=== PATIENT | female | born 1940 | race Caucasian/White ===

== ENCOUNTER 2017-07-13 10:30 | Outpatient (CLI) | payer MEDICARE, MEDICAID | END 2017-07-13 23:59 | disposition home or self-care (01) | LOC: RAD 10:30 | DX: J84.9 Interstitial pulmonary disease, unspecified (principal); I70.0 Atherosclerosis of aorta | CPT/HCPCS: 71046 ==

== ENCOUNTER 2018-02-02 12:22 | Emergency (ER) | payer MEDICARE, MEDICAID ==
[~2018-02-02] VITALS: Ht 160 cm; Wt 88.9 kg
--- NOTE | 2018-02-02 12:25 | NUR ---
BIB DAUGHTER C/O SUDDEN DARKNESS WHILE SITTING ON A CHAIR X 3 DAYS. ALSO C/O SOB. A/OX 4, BREATHING EVEN AND UNLABORED. NO DISTRESS, VSS. SAFETY AND COMFORT MEASURES IN PLACE. AWAITING MD ORDERS.
[2018-02-02] MEDS ORDERED: ONDANSETRON HCL/PF 4 MG/2 ML VIAL IVP ONE (12:30)
[2018-02-02] MEDS ORDERED: IV NS 0.9% 500 ML BAG IV ONE (12:30)
[2018-02-02] MEDS ORDERED: ONDANSETRON HCL/PF 4 MG/2 ML VIAL ONE (12:35)
--- NOTE | 2018-02-02 12:45 | NUR ---
NEW IV STARTED ON LAC, 20G. BLOOD DRAWN AND SENT TO LAB.
[2018-02-02 12:47] LABS: BASOPHILS % (AUTO) 0.6 % (0.0-2.0); EOSINOPHILS % (AUTO) 2.4 % (0.0-6.0); HEMATOCRIT 40 % (33-45); HEMOGLOBIN 13.6 g/dL (11.5-14.8); LYMPHOCYTES # (AUTO) 1.9 /CMM (0.8-4.8); LYMPHOCYTES % (AUTO) 33.3 % (20.0-44.0); MEAN CORPUSCULAR HEMOGLOBIN 30 PG (26.0-33.0); MEAN CORPUSCULAR HGB CONC 34 g/dl (31.0-36.0); MEAN CORPUSCULAR VOLUME 89 fL (82-100); MONOCYTES # (AUTO) 0.3 /CMM (0.1-1.30); MONOCYTES % (AUTO) 6.1 % (2.0-12.0); NEUTROPHILS # (AUTO) 3.3 /CMM (1.8-8.9); NEUTROPHILS % (AUTO) 57.6 % (43.0-81.0); PLATELET COUNT (AUTO) 160 /CMM (150-450); RDW COEFFICIENT OF VARIATION 11.9 (11.5-15.0); RED BLOOD CELL COUNT(AUTO) 4.53 MIL/uL (4.0-5.2); WHITE BLOOD COUNT (AUTO) 5.6 K/uL (4.3-11.0)
--- NOTE | 2018-02-02 12:49 | NUR ---
PATIENT MEDICATED PER MD ORDERS. PATIENT TAKEN TO RADIOLOGY.
[2018-02-02 12:56] LABS: CALCIUM, SERUM 8.8 mg/dL (8.5-10.1); CARBON DIOXIDE 26 mmol/L (21-32); CHLORIDE 104 mmol/L (98-107); CREATININE 0.8 mg/dL (0.6-1.3); GLUCOSE 90 mg/dL (74-106); POTASSIUM 3.7 mmol/L (3.5-5.1); SODIUM SERUM 137 mmol/L (136-145); UREA NITROGEN, BLOOD 19 mg/dL (7-18)
[2018-02-02 13:00] LABS: INR 1.01 (0.85-1.15)
[2018-02-02 13:02] LABS: ALANINE AMINOTRANSFERASE 37 U/L (12-78); ALBUMIN 3.6 g/dL (3.4-5.0); ALKALINE PHOSPHATASE 67 U/L (46-116); ASPARTATE AMINOTRANSFERASE 26 U/L (15-37); BILIRUBIN,DIRECT 0.1 mg/dL (0.0-0.2); BILIRUBIN,TOTAL 0.6 mg/dL (0.2-1.0); TOTAL PROTEIN, SERUM 7.6 g/dL (6.4-8.2)
[2018-02-02 13:04] LABS: TROPONIN I < 0.017 ng/mL (0.00-0.056)
--- NOTE | 2018-02-02 13:05 | NUR ---
PATIENT RETURNED FROM RADIOLOGY IN STABLE CONDITION.
[2018-02-02 14:10] VITALS: BP 142/84
--- NOTE | 2018-02-02 14:32 | NUR ---
IV removed. Catheter intact and site benign. Pressure and 4x4 applied to site. No bleeding noted.Patient discharged to home in stable condition. Written and verbal after care instructions given. Patient verbalizes understanding of instruction.
== END 2018-02-02 14:32 | disposition left against medical advice (07) ==
LOC: ER 12:26
DX: R55 Syncope and collapse (principal); R53.1 Weakness; E66.9 Obesity, unspecified; E78.00 Pure hypercholesterolemia, unspecified; I10 Essential (primary) hypertension; Z90.49 Acquired absence of other specified parts of digestive tract; Z90.710 Acquired absence of both cervix and uterus; Z68.34 Body mass index [BMI] 34.0-34.9, adult
CPT/HCPCS: 36415; 70450; 71045; 80048; 80076; 82962; 84484; 85025; 85730; 93005; 96374; 99285; A4606; J2405; J7040; Z7610

== ENCOUNTER 2018-02-22 10:07 | Outpatient (CLI) | payer MEDICARE, MEDICAID | END 2018-02-22 23:59 | disposition home or self-care (01) | LOC: US 10:07 | DX: K76.0 Fatty (change of) liver, not elsewhere classified (principal); N13.30 Unspecified hydronephrosis; I10 Essential (primary) hypertension; Z90.49 Acquired absence of other specified parts of digestive tract; Z90.710 Acquired absence of both cervix and uterus | CPT/HCPCS: 76700-TC ==

== ENCOUNTER 2020-05-22 15:34 | Emergency (ER) | payer MEDICARE, OTHER ==
[~2020-05-22] VITALS: Ht 162.6 cm; Wt 95.3 kg
[2020-05-22] MEDS ORDERED: IV NS 0.9% 500 ML BAG IV ONE (17:00)
[2020-05-22] MEDS ORDERED: ASPI-1420 PO (17:03)
[2020-05-22] MEDS ORDERED: ASCO-352 PO (17:03)
[2020-05-22] MEDS ORDERED: ENAL10TA39 PO (17:03)
[2020-05-22] MEDS ORDERED: CHOL500052 PO (17:03)
[2020-05-22] MEDS ORDERED: ATEN50TA PO (17:03)
[2020-05-22] MEDS ORDERED: DEXA4TAB PO (17:03)
--- NOTE | 2020-05-22 17:39 | NUR ---
BIBDAUGHTER FROM HOME TO ER BED 14. AAOX4. NOT IN RESP DISTRESS, BREATHING EVEN AND UNLABORED BUT NOTED 88% ON RA. PT IS AMBULATORY. CAME IN FOR HYPOXIA, FEVER, POOR PO , NAUSEA, VOMMITING AND DIARRHEA. PT'S DAUGHTER REPORTS THAT PT WAS COVID POSITIVE SINCE 05/13/20. WAS AT THE BEDSIDE FOR EVAL. ORDERS RECEIVED, NOTED AND CARRIED OUT. IV LINE ESTABLISHED ON L AC 20G, BLOOD DRAWN AND GIVEN TO PRIOR AUTHORIZATION TECHNICIAN. XRAY DONE AT BEDSIDE
[2020-05-22 17:42] LABS: BASOPHILS # (AUTO) 0.2 /CMM (0.0-0.2); BASOPHILS % (AUTO) 3.5 % (0.0-2.0); EOSINOPHILS % (AUTO) 0.4 % (0.0-6.0); HEMATOCRIT 41 % (33-45); LYMPHOCYTES # (AUTO) 0.3 /CMM (0.8-4.8); LYMPHOCYTES % (AUTO) 7.2 % (20.0-44.0); MEAN CORPUSCULAR HGB CONC 34 g/dl (31.0-36.0); MEAN CORPUSCULAR VOLUME 89 fL (82-100); MONOCYTES # (AUTO) 0.3 /CMM (0.1-1.30); MONOCYTES % (AUTO) 6.9 % (2.0-12.0); NEUTROPHILS # (AUTO) 3.7 /CMM (1.8-8.9); PLATELET COUNT (AUTO) 116 /CMM (150-450); RED BLOOD CELL COUNT(AUTO) 4.59 MIL/uL (4.0-5.2); WHITE BLOOD COUNT (AUTO) 4.5 K/uL (4.3-11.0)
[2020-05-22 17:51] LABS: CALCIUM, SERUM 8.2 mg/dL (8.5-10.1); CREATININE 1.1 mg/dL (0.6-1.3); POTASSIUM 4.3 mmol/L (3.5-5.1)
--- NOTE | 2020-05-22 17:58 | NUR ---
PT UNABLE TO PROVIDE URINE AT THIS TIME. WILL TRY AGAIN IN A BIT
--- NOTE | 2020-05-22 17:58 | NUR ---
COVID SWAB DONE AND SENT TO LAB
[2020-05-22 18:04] LABS: ALBUMIN 3.1 g/dL (3.4-5.0); BILIRUBIN,DIRECT 0.2 mg/dL (0.0-0.2); BILIRUBIN,TOTAL 0.6 mg/dL (0.2-1.0); TOTAL PROTEIN, SERUM 7.5 g/dL (6.4-8.2)
[2020-05-22 18:44] VITALS: BP 117/57
--- NOTE | 2020-05-22 18:44 | NUR ---
Patient discharged to home in stable condition. Written and verbal after care instructions given. Patient verbalizes understanding of instruction.IV removed. Catheter intact and site benign. Pressure and 4x4 applied to site. No bleeding noted. Pt ambulatory with a steady gait
== END 2020-05-22 18:45 | disposition home or self-care (01) ==
LOC: ER 16:38
DX: U07.1 COVID-19 (principal); J12.89 Other viral pneumonia; Z90.49 Acquired absence of other specified parts of digestive tract; I11.9 Hypertensive heart disease without heart failure; Z79.899 Other long term (current) drug therapy
CPT/HCPCS: 36415; 71045; 80048; 80076; 83880; 84484; 85025; 93005; 99285; J7040; C9803; U0003

== ENCOUNTER 2020-05-25 10:30 | Inpatient (IN) | payer MEDICARE, OTHER ==
[~2020-05-25] VITALS: Ht 157.5 cm; Wt 84.4 kg
[~2020-05-25 10:30] MED LIST: ASCO-352 PO; ASPI-1420 PO; ATEN50TA PO; CHOL500052 PO; DEXA4TAB PO; ENAL10TA39 PO
--- NOTE | 2020-05-25 10:35 | NUR ---
BIB DAUGHTER, SOB, WEAKNESS. HYPOXIC INSTRUCTIONAL SPECIALIST. COVID19 POSITIVE. placed on nrb at 15l satting at 98. vs checked, hooken on monitor. iv access started blood draw done sent to lab
[2020-05-25] MEDS ORDERED: IV NS 0.9% 500 ML IV ONE (11:00)
[2020-05-25 11:05] LABS: BASOPHILS % (AUTO) 0.2 % (0.0-2.0); HEMATOCRIT 42 % (33-45); HEMOGLOBIN 14.4 g/dL (11.5-14.8); LYMPHOCYTES # (AUTO) 0.4 /CMM (0.8-4.8); LYMPHOCYTES % (AUTO) 6.4 % (20.0-44.0); MEAN CORPUSCULAR HGB CONC 34 g/dl (31.0-36.0); MEAN CORPUSCULAR VOLUME 90 fL (82-100); MONOCYTES # (AUTO) 0.4 /CMM (0.1-1.30); NEUTROPHILS # (AUTO) 6.2 /CMM (1.8-8.9); NEUTROPHILS % (AUTO) 88.4 % (43.0-81.0); PLATELET COUNT (AUTO) 155 /CMM (150-450); RED BLOOD CELL COUNT(AUTO) 4.67 MIL/uL (4.0-5.2)
[2020-05-25 11:26] LABS: CALCIUM, SERUM 8.7 mg/dL (8.5-10.1); CARBON DIOXIDE 24 mmol/L (21-32); CHLORIDE 99 mmol/L (98-107); GLUCOSE 154 mg/dL (74-106); POTASSIUM 3.7 mmol/L (3.5-5.1); SODIUM SERUM 133 mmol/L (136-145); UREA NITROGEN, BLOOD 25 mg/dL (7-18)
[2020-05-25 11:31] LABS: ALANINE AMINOTRANSFERASE 88 U/L (12-78); ALBUMIN 2.7 g/dL (3.4-5.0); ALKALINE PHOSPHATASE 86 U/L (46-116); ASPARTATE AMINOTRANSFERASE 95 U/L (15-37); B-TYPE NATRIURETIC PEPTIDE 753 PG/ML (0-125); BILIRUBIN,TOTAL 0.9 mg/dL (0.2-1.0); TOTAL PROTEIN, SERUM 7.6 g/dL (6.4-8.2)
[2020-05-25] MEDS ORDERED: GABA300C PO (11:54)
[2020-05-25] MEDS ORDERED: ZINC220T4 PO (11:54)
[2020-05-25] MEDS ORDERED: ROSU40TA23 PO (11:54)
[2020-05-25] MEDS ORDERED: CITA40TA11 PO (11:54)
[2020-05-25] MEDS ORDERED: ASPI-869 PO (11:54)
[2020-05-25] MEDS ORDERED: BUSP15TA3 PO (11:54)
[2020-05-25] MEDS ORDERED: DONE23TA3 PO (11:54)
[2020-05-25 13:04] LABS: D-DIMER > 35.20 mg/L(FEU (0.17-0.50)
[2020-05-25] MEDS ORDERED: HYDROCODONE/APAP 5/325MG TABLET PO PRN (13:30)
[2020-05-25] MEDS ORDERED: ACETAMINOPHEN 325 MG TABLET PO PRN (13:30)
[2020-05-25] MEDS ORDERED: ENALAPRIL MALEATE (10 MG) 10 MG TABLET PO PRN (13:30)
[2020-05-25] MEDS ORDERED: MAGNESIUM HYDROXIDE 30 ML UDC PO PRN (13:30)
[2020-05-25] MEDS ORDERED: ATENOLOL 50 MG TABLET PO PRN (13:30)
[2020-05-25] MEDS ORDERED: Z GUARD REMEDY 2 OZ OINT TP PRN (13:30)
[2020-05-25] MEDS ORDERED: MAG HYDROX/AL HYDROX/SIMETH 30 ML UDC PO PRN (13:30)
[2020-05-25] MEDS ORDERED: ZOLPIDEM TARTRATE 5 MG TABLET PO PRN (13:30)
[2020-05-25] MEDS ORDERED: IV NS 0.9% 250 ML IV ONE (13:52)
[2020-05-25] MEDS ORDERED: IOHEXOL-350 100 ML VIAL IV ONE (13:52)
[2020-05-25] MEDS ORDERED: CT SWABBABLE VALVE TRANS SET 1 EA INFUS.SET MC ONE (13:52)
--- NOTE | 2020-05-25 14:07 | NUR ---
CALLED NURSING SUP FOR TELE BED.
[2020-05-25] MEDS ORDERED: REMDESIVIR (CHARGED) 200 MG, *LOADING DOSE 1 EA in IV NS 0.9% 210 ML IV ONE (15:00)
--- NOTE | 2020-05-25 15:42 | NUR ---
BED 103
[2020-05-25] MEDS ORDERED: busPIRone 5 MG TABLET ONE (16:28)
[2020-05-25] MEDS: APIXABAN 5 MG TABLET PO SCH (16:29)
[2020-05-25] MEDS: busPIRone 5 MG TABLET PO SCH (16:29)
[2020-05-25] MEDS ORDERED: ASPI-1420 PO (16:40)
[2020-05-25 17:12] LABS: CREATINE KINASE, TOTAL 64 U/L (26-192)
[2020-05-25 18:11] LABS: FERRITIN 2945 ng/mL (8-388)
--- NOTE | 2020-05-25 18:45 | NUR ---
attempted to give report but per nurse they are not ready yet
--- NOTE | 2020-05-25 19:29 | NUR ---
called again to try to give report but nurse is still no available at this time.
--- NOTE | 2020-05-25 19:38 | NUR ---
report given to brie giang
--- NOTE | 2020-05-25 19:55 | NUR ---
transferred to room 103
[2020-05-25 20:00] VITALS: BP 128/71
--- NOTE | 2020-05-25 20:00 | NUR ---
ADMISSION NOTE PATIENT ADMITTED TO FLOOR FROM ER FOR CC SOB; WEAKNESS; HYPOXIA. HISTORY OF BEING COVID POSITIVE. PT ARRIVED ON NRB 15 L SATURATION AT 90 %. C/O MILD WHEN TRANSFERRING FROM GURNEY TO BED PT C/O SOB.. PT ASSISTED TO BED. ACCOMPANIED BY HER DAUGHTER AT THE BEDSIDE. ADMISSION ASSESSMENT PERFORMED WITH DTR ASSISTANCE. PT MIQUEL BELARUSIAN SPEAKING PRIMARILY DTR SPEAKS DANISH. PT ORIENTED TO ROOM. ORIENTED TO CALL LIGHT. DEMONSTRATED PROPER USE. BED DOWN LOCKED SRX2. PLACED ON ARCHEOLOGIST CLASSICAL PT IS SR. WILL CONT TO MONITOR.
--- NOTE | 2020-05-25 20:20 | NUR ---
spoke with practitioner angela about upate to celexa on med rec. new order to modify celexa and reschedule at evening time per patient request.
[2020-05-25 20:49] LABS: ABG BASE EXCESS -2.1 mmol/L; ABG PCO2 35.2 mmHg (35.0-45.0); ABG PH 7.411 (7.350-7.450); ABG PO2 82.5 mmHg (75.0-100.0); AaDO2 595.3 mmHg; COHb 0.3 % (0.5-1.5); MetHb 0.2 % (0.0-1.5); O2Hb 95.5 % (94.0-97.0); VENT MODE, BG NRB MASK
--- NOTE | 2020-05-25 21:13 | NUR ---
patient transferred from er on nrb mask saturations at 90 percent. ptatient having c/o mild sob. dtr ochoa concerned with mothers oxygenations. patient has been on non rebreather all day. contacted angela grace new order for abg recieved. 2044 rt at bedside to do abg. Addendum: 05/25/20 at 2113 by QUENTIN LAW RN initial note at 2019 2113 patient placed on highflow nasal canulat at 40 liters at 100% fio2
[2020-05-25] MEDS: ATORVASTATIN 40 MG TABLET PO SCH ×2 (21:41→22:00)
[2020-05-25] MEDS ORDERED: CITA20TA19 PO (21:57)
[2020-05-25] MEDS ORDERED: GABAPENTIN 300 MG CAPSULE PO SCH (22:00)
[2020-05-25 22:51] VITALS: BP 146/87
[2020-05-26] VITALS (9 sets, daily range): BP systolic 113–168; BP diastolic 66–87
--- NOTE | 2020-05-26 02:18 | NUR ---
PRN BP MEDS CLARIFIED. PT DTR REQUESTING PRN BP MED FOR MOTHER. RECENT CHECK REVEALED BP OF 160/78. PT HAS TWO BP MEDS ORDERED BUT NEED TO BE CLARIFIED. PER DTR PT DOES NOT TAKEE ATENOLOL ANYMORE. TAKING ENALAPRIL AT HOME PRN. SPOKE WITH CLARICE WALL ATTENDANT INFORMED OF THIS INFORMATION AND OBTAINED CLARIFICATION ORDER TO DC ATENOLOL AND ADD ENALAPRIL PRN SBP GREATER THEN/EQUAL TO 160.
[2020-05-26] MEDS: ENALAPRIL MALEATE (10 MG) 10 MG TABLET PO PRN ×2 (02:22→18:29)
[2020-05-26 06:21] LABS: BASOPHILS % (AUTO) 0.1 % (0.0-2.0); HEMATOCRIT 40 % (33-45); LYMPHOCYTES # (AUTO) 0.7 /CMM (0.8-4.8); LYMPHOCYTES % (AUTO) 10.4 % (20.0-44.0); MEAN CORPUSCULAR HGB CONC 35 g/dl (31.0-36.0); MEAN CORPUSCULAR VOLUME 88 fL (82-100); MONOCYTES # (AUTO) 0.4 /CMM (0.1-1.30); MONOCYTES % (AUTO) 6.4 % (2.0-12.0); NEUTROPHILS # (AUTO) 5.4 /CMM (1.8-8.9); NEUTROPHILS % (AUTO) 83.1 % (43.0-81.0); PLATELET COUNT (AUTO) 177 /CMM (150-450); RED BLOOD CELL COUNT(AUTO) 4.57 MIL/uL (4.0-5.2); WHITE BLOOD COUNT (AUTO) 6.6 K/uL (4.3-11.0)
[2020-05-26 06:30] LABS: CHOLESTEROL 192 mg/dL (<200); HDL CHOLESTEROL 32 mg/dL (40-60); LDL 121 mg/dL (0-99); TRIGLYCERIDES 178 mg/dL (30-150)
[2020-05-26 06:45] LABS: CALCIUM, SERUM 8.5 mg/dL (8.5-10.1); CARBON DIOXIDE 24 mmol/L (21-32); CHLORIDE 100 mmol/L (98-107); CREATININE 0.8 mg/dL (0.6-1.3); GLUCOSE 103 mg/dL (74-106); MAGNESIUM 2.1 mg/dL (1.8-2.4); PHOSPHORUS 3.5 mg/dL (2.5-4.9); POTASSIUM 3.8 mmol/L (3.5-5.1); SODIUM SERUM 133 mmol/L (136-145); UREA NITROGEN, BLOOD 24 mg/dL (7-18)
--- NOTE | 2020-05-26 06:54 | NUR ---
COMPRESSOR STATION ENGINEER PM CLOSING NOTE PT IN BED ON HFNC SATURATING AT 93% DTR SEBASTIAN STILLL AT BEDSIDE DENIES PAIN OR DISCOMFORT. BED DOWN LOCKED SR X2 WILL CONT TO MONITOR. CALL LIGHT WITHIN REACH. PT USED BSC X2 LAST NOC WITH ASSIST. WILL ENDORSE TO ONCOMING SHIFT. TELE MONITOR SR.
--- NOTE | 2020-05-26 08:00 | NUR ---
telecommunications support note patient in bed , alert oriented x3 on high shlomo of o2 as ordered 40l 100% ,saturation 95%m on tele monitor sr hr 75, rt fa hl intact and flushed well bed in lowest and locked position, all needs attended call light within reach , will cont to monitor
[2020-05-26] MEDS: ZINC SULFATE 220 MG CAPSULE PO SCH (08:03)
[2020-05-26] MEDS: APIXABAN 5 MG TABLET PO SCH ×2 (08:06→16:14)
[2020-05-26] MEDS: ASCORBIC ACID 500 MG TABLET PO SCH (08:06)
[2020-05-26] MEDS: ASPIRIN 81 MG TAB.CHEW PO SCH (08:06)
[2020-05-26] MEDS: DEXAMETHASONE SOD PHOSPHATE 10 MG/ML VIAL IV SCH (08:08)
[2020-05-26] MEDS: DONEPEZIL 5 MG TABLET PO SCH (08:09)
[2020-05-26] MEDS: busPIRone 5 MG TABLET PO SCH ×2 (08:14→17:00)
[2020-05-26] MEDS ORDERED: ZINC SULFATE 220 MG CAPSULE PO SCH (09:00)
[2020-05-26] MEDS ORDERED: ASPIRIN EC 325 MG TABLET.DR PO SCH (09:00)
[2020-05-26] MEDS ORDERED: CITALOPRAM HYDROBROMIDE 20 MG TABLET PO SCH (09:00)
[2020-05-26] MEDS: ERGOCALCIFEROL (VITAMIN D 2) 50,000 UNIT CAPSULE PO SCH (09:00)
--- NOTE | 2020-05-26 10:53 | NUR ---
WORM PACKER NOTE PER DR MONICA STALEY TO TITRATE HIGH FLOW 50 80% MONITOR SATURATION ABOVE 90% RT AT BEDSIDE AND CONSENT FOR CONVALESCENT PLASMA SIGNED BY MD AND PATIENT, SENT TO LAB
--- NOTE | 2020-05-26 12:47 | NUR ---
manager telemarketing note per dr lemon and rt ok to change fio2 high flow 80% saturation now 95%
--- NOTE | 2020-05-26 14:10 | NUR ---
TELE R NOTE ASSISTED O BSC ABLE TO URINATE, KEEP CLEAN DRY , ALL NEEDS ATTENDED CALL LIGHT WITHIN REACH
[2020-05-26 14:33] LABS: ALBUMIN 2.5 g/dL (3.4-5.0); BILIRUBIN,DIRECT 0.3 mg/dL (0.0-0.2); BILIRUBIN,TOTAL 0.7 mg/dL (0.2-1.0); TOTAL PROTEIN, SERUM 6.9 g/dL (6.4-8.2)
[2020-05-26] MEDS: REMDESIVIR (CHARGED) 100 MG in IV NS 0.9% 100 ML IV SCH (14:49)
[2020-05-26] MEDS ORDERED: REMDESIVIR (CHARGED) 100 MG in IV NS 0.9% 100 ML IV SCH (15:00)
--- NOTE | 2020-05-26 18:25 | NUR ---
ATTACHER NOTE FIO2 80% [id number] ENCOURAGED TO PLACED PRONE POSITION ON ONSIDE , ALL NEEDS ATTENDED NO SOB NOTED CALL LIGHT WITHIN REACH , WILL MONITOR
[2020-05-26] MEDS: ONDANSETRON HCL/PF 4 MG/2 ML VIAL IVP PRN (18:47)
--- NOTE | 2020-05-26 19:01 | NUR ---
CONSTRUCTION LINEMAN NOTE NOTED PATIENT VOMITING , ZOFRAN 4 MG IVP GIVEN ORDERED, WILL MONITOR
--- NOTE | 2020-05-26 19:35 | NUR ---
RN OPENING NOTES RECEIVED PT IN BED A/O X 2-3, VERY TIRED, C/O NAUSEA. DAUGTHER TRANSLATES, BETTER TO COMMUNICATE. HIGH FLOW 40L AAT 80%FIO2 SATURATION AT 93%. TOLERATING WELL. BREATHING EVEN AND UNLABORED. NO S/S OF RESP DISTRESS OR SOB NOTED ON TELE MONITORING NSR HR 60S PT DENIES PAIN, AFEBRILE. IV SITES FLUSHED ASEPTICALLY. SAFETY MEASURES IN PLACE. HOB ELEVATED. SIDE RAILS UP X2 BED LOCKED IN LOWEST POSITION. CALL LIGHT WITHIN REACH WILL CONT TO MONITOR.
[2020-05-26] MEDS: CITALOPRAM HYDROBROMIDE 20 MG TABLET PO SCH (21:02)
[2020-05-26] MEDS: ATORVASTATIN 40 MG TABLET PO SCH (21:04)
[2020-05-27] VITALS (8 sets, daily range): BP systolic 115–163; BP diastolic 66–90
[2020-05-27] MEDS: ONDANSETRON HCL/PF 4 MG/2 ML VIAL IVP PRN ×3 (01:24→16:09)
[2020-05-27 06:43] LABS: BASOPHILS % (AUTO) 0.1 % (0.0-2.0); EOSINOPHILS % (AUTO) 0.1 % (0.0-6.0); HEMATOCRIT 41 % (33-45); HEMOGLOBIN 13.9 g/dL (11.5-14.8); LYMPHOCYTES # (AUTO) 0.6 /CMM (0.8-4.8); LYMPHOCYTES % (AUTO) 8.9 % (20.0-44.0); MEAN CORPUSCULAR HGB CONC 34 g/dl (31.0-36.0); MEAN CORPUSCULAR VOLUME 89 fL (82-100); MONOCYTES # (AUTO) 0.4 /CMM (0.1-1.30); MONOCYTES % (AUTO) 5.9 % (2.0-12.0); NEUTROPHILS # (AUTO) 5.3 /CMM (1.8-8.9); PLATELET COUNT (AUTO) 194 /CMM (150-450); RED BLOOD CELL COUNT(AUTO) 4.57 MIL/uL (4.0-5.2); WHITE BLOOD COUNT (AUTO) 6.3 K/uL (4.3-11.0)
[2020-05-27 06:59] LABS: ALANINE AMINOTRANSFERASE 89 U/L (12-78); ALBUMIN 2.5 g/dL (3.4-5.0); ALKALINE PHOSPHATASE 97 U/L (46-116); ASPARTATE AMINOTRANSFERASE 71 U/L (15-37); BILIRUBIN,DIRECT 0.4 mg/dL (0.0-0.2); CALCIUM, SERUM 8.6 mg/dL (8.5-10.1); CARBON DIOXIDE 25 mmol/L (21-32); CHLORIDE 101 mmol/L (98-107); CREATININE 0.8 mg/dL (0.6-1.3); GLUCOSE 93 mg/dL (74-106); POTASSIUM 3.7 mmol/L (3.5-5.1); SODIUM SERUM 136 mmol/L (136-145); TOTAL PROTEIN, SERUM 6.9 g/dL (6.4-8.2); UREA NITROGEN, BLOOD 27 mg/dL (7-18)
--- NOTE | 2020-05-27 07:06 | NUR ---
RN OPENING NOTES RECEIVED PT AWAKE AT THIS TIME. PT IS AOX3. NO SOB NOTED, NO S/S OF ANY APPARENT DISTRESS NOTED. NO C/O PAIN NOTED AT THIS TIME. RESPIRATIONS ARE EVEN AND UNLABORED WITH EQUAL RISE AND FALL IN CHEST. PT NOTED ON HIGH FLOW OXYGEN AT 40LPM WITH FIO2 OF 80%. DAUGHTER AT BEDSIDE, PT ON EXTERNAL MANUFACTURING SOFTWARE ENGINEER READING SR IN THE70s. IV ACCESS NOTED IN RFA G#20, INTACT, PATENT AND FLUSHING WELL. ASPIRATION AND SAFETY PRECAUTION IN PLACE AND MAINTAINED AT ALL TIMES. BED IN LOWEST LOCKED POSITION, HOB ELEVATED, SIDE RAILS UP X 2, CALL LIGHT AND TABLE WITHIN REACH. WILL CONTINUE TO MONITOR
--- NOTE | 2020-05-27 07:40 | NUR ---
RN CLOSING NOTES NO CHANGE IN PT, RESTED WELL THROUGHOUT NIGHT. S/P CONVALESCENT PLASMA NO REACTION NOTED. PT STILL ON SAME HIGH FLOW ORDERED NO CHANGE. NO S/S OF RESP DISTRESS OR SOB NOTED ON TELE MONITORING NSR HR 60S PT DENIES PAIN, AFEBRILE. SAFETY MEASURES IN PLACE. HOB ELEVATED. SIDE RAILS UP X2 BED LOCKED IN LOWEST POSITION. CALL LIGHT WITHIN REACH WILL CONT TO MONITOR.
[2020-05-27] MEDS: DONEPEZIL 5 MG TABLET PO SCH (09:00)
[2020-05-27] MEDS: APIXABAN 5 MG TABLET PO SCH ×2 (09:31→17:09)
[2020-05-27] MEDS: DEXAMETHASONE SOD PHOSPHATE 10 MG/ML VIAL IV SCH (09:32)
[2020-05-27] MEDS: ASPIRIN 81 MG TAB.CHEW PO SCH (09:32)
[2020-05-27] MEDS: ZINC SULFATE 220 MG CAPSULE PO SCH (09:32)
[2020-05-27] MEDS: ASCORBIC ACID 500 MG TABLET PO SCH (09:32)
--- NOTE | 2020-05-27 09:40 | NUR ---
PT C/O OF NAUSEA AT THIS TIME. VS WNL, PER PT REQUEST ZOFRAN 4MG IVP Q6HR FOR NAUSEA ADMINISTERED PER ORDER. WILL CONTINUE TO MONITOR
--- NOTE | 2020-05-27 09:44 | NUR ---
ARICEPT NON ADMINISTER AT THIS TIME D/T CHICO,PT'S DAUGHTER REFUSED STATING "MY MOM DOES NOT TAKE THIS MEDICATION". CHICO PT'S DAUGHTER AT BEDSIDE. WILL CONTINUE WITH PLAN OF CARE
[2020-05-27] MEDS: REMDESIVIR (CHARGED) 100 MG in IV NS 0.9% 100 ML IV SCH (15:11)
[2020-05-27] MEDS: ENALAPRIL MALEATE (10 MG) 10 MG TABLET PO PRN (16:08)
--- NOTE | 2020-05-27 18:45 | NUR ---
RN CLOSING NOTES PT AWAKE IN BED AT THIS TIME. PT REMAINED STABLE THROUGHOUT SHIFT. ALL CARE, NEED, MEDICATIONS AND TREATMENT ADMINISTERED ANTICIPATED PER ORDER. PT KEPT CLEAN AND DRY. PT ASSISTED TO USE BEDSIDE COMMODE. CHICO, PT'S DAUGHTER AT BEDSIDE AT THIS TIME. PT REPOSITIONED Q2HR AND PRN. ORAL PO INTAKE ENCOURAGED. ASPIRATION AND SAFETY PRECAUTION IN PLACE AND MAINTAINED AT ALL TIMES. BED IN LOWEST LOCKED POSITION, HOB ELEVATED, SIDE RAILS UP X 2, CALL LIGHT AND TABLE WITHIN REACH. WILL ENDORSE TO REPAIRER RECREATIONAL VEHICLE NURSE FOR KELLY
[2020-05-27] MEDS: ENSURE ENLIVE 237 ML LIQUID (VANILLA) PO SCH (18:47)
--- NOTE | 2020-05-27 19:50 | NUR ---
RN NOTES PATIENT A/O X2-3, AWAKE AND RESPONSIVE. NO SOB OR ANY RESPIRATORY DISTRESS. RESPIRATIONS EVEN AND UNLABORED. TELE MONITOR ON, SR 70'S. WITH RFA #20, PATENT AND INTACT. NO S/S OF DISCOMFORT. DTR @ BEDSIDE AT THIS TIME. BED LOCKED AND IN LOWEST POSITION. SIDE RAILS UP X2. CALL LIGHT WITHIN REACH. WILL CONTINUE TO MONITOR.
--- NOTE | 2020-05-27 20:30 | NUR ---
PATIENT'S BP 163/98. INFORMED SANDEEP ONEIL AND DAVID WILL PUT IN ORDERS. DTR CHICO MADE AWARE.
[2020-05-27] MEDS ORDERED: hydrALAZINE HCL 10 MG TABLET PO ONE (21:00)
[2020-05-27] MEDS: CITALOPRAM HYDROBROMIDE 20 MG TABLET PO SCH (21:01)
[2020-05-27] MEDS: ATORVASTATIN 40 MG TABLET PO SCH (21:02)
[2020-05-28] VITALS: BP 148/80
[2020-05-28 04:00] VITALS: BP 145/69
[2020-05-28 07:07] LABS: EOSINOPHILS % (AUTO) 0.3 % (0.0-6.0); HEMATOCRIT 42 % (33-45); HEMOGLOBIN 14.2 g/dL (11.5-14.8); LYMPHOCYTES # (AUTO) 0.7 /CMM (0.8-4.8); LYMPHOCYTES % (AUTO) 8.8 % (20.0-44.0); MEAN CORPUSCULAR HGB CONC 34 g/dl (31.0-36.0); MEAN CORPUSCULAR VOLUME 89 fL (82-100); MONOCYTES # (AUTO) 0.4 /CMM (0.1-1.30); MONOCYTES % (AUTO) 5.8 % (2.0-12.0); NEUTROPHILS # (AUTO) 6.3 /CMM (1.8-8.9); NEUTROPHILS % (AUTO) 85.1 % (43.0-81.0); PLATELET COUNT (AUTO) 198 /CMM (150-450); RED BLOOD CELL COUNT(AUTO) 4.68 MIL/uL (4.0-5.2); WHITE BLOOD COUNT (AUTO) 7.5 K/uL (4.3-11.0)
--- NOTE | 2020-05-28 07:23 | NUR ---
RN NOTE PATIENT A/O X2-3, AWAKE AND RESPONSIVE. NO SOB OR ANY RESPIRATORY DISTRESS. RESPIRATIONS EVEN AND UNLABORED. ON HF 40L @80%, O2 SAT 93%. TELE MONITOR ON, SR 70'S. WITH RFA #20, PATENT AND INTACT. NO S/S OF DISCOMFORT. BED LOCKED AND IN LOWEST POSITION. SIDE RAILS UP X2. CALL LIGHT WITHIN REACH. ENDORSED TO ONCOMING SHIFT.
[2020-05-28 07:44] LABS: CALCIUM, SERUM 8.5 mg/dL (8.5-10.1); CREATININE 0.7 mg/dL (0.6-1.3); POTASSIUM 3.8 mmol/L (3.5-5.1)
[2020-05-28 08:00] VITALS: BP 140/72
[2020-05-28] MEDS: ENSURE ENLIVE 237 ML LIQUID (VANILLA) PO SCH ×6 (08:00→17:15)
[2020-05-28] MEDS: ASCORBIC ACID 500 MG TABLET PO SCH (08:21)
[2020-05-28] MEDS: ASPIRIN 81 MG TAB.CHEW PO SCH (08:21)
[2020-05-28] MEDS: APIXABAN 5 MG TABLET PO SCH ×2 (08:22→16:32)
[2020-05-28] MEDS: DEXAMETHASONE SOD PHOSPHATE 10 MG/ML VIAL IV SCH (08:22)
[2020-05-28] MEDS: ZINC SULFATE 220 MG CAPSULE PO SCH (08:25)
--- NOTE | 2020-05-28 09:25 | NUR ---
RN OPENING NOTE PATIENT RECEIVED IN BED. AOX2. PATIENT IS ON HIGH FLOW 40L @80%. PATIENT IS AMB ASSIST. SKIN IS IN TACT. ALL VITAL SIGNS ARE WITHIN NORMAL LIMITS. RFA LOCK IS PATENT. BED IS AT THE LOWEST POSITION, CALL ORTEGA IS WITHIN REACH, ALL HOSPITAL SAFETY PRECAUTIONS ARE BEING FOLLOWED. WILL CONTINUE TO MONITOR THROUGHOUT SHIFT.
--- NOTE | 2020-05-28 11:31 | NUR ---
SPOKE WITH DOCTOR PAEZ AND ORDERED THE CHEST X-RAY. Addendum: 05/28/20 at 1133 by MCKENZIE GRIFFITH RN placed on side saturation 95%
[2020-05-28 12:00] VITALS: BP 146/73
--- NOTE | 2020-05-28 14:03 | NUR ---
telehealth nurse educator note chest x ray done as ordered
[2020-05-28 14:55] LABS: ALBUMIN 2.5 g/dL (3.4-5.0); BILIRUBIN,DIRECT 0.4 mg/dL (0.0-0.2); TOTAL PROTEIN, SERUM 6.8 g/dL (6.4-8.2)
--- NOTE | 2020-05-28 15:54 | NUR ---
television writer note called to pharmacy remdzevir still making ,will f\u
[2020-05-28 16:00] VITALS: BP 119/65
--- NOTE | 2020-05-28 16:51 | NUR ---
telesales representative note called pharmacy spoke with Lorena gilmore remdezevip available, state that will bring soon
[2020-05-28] MEDS: REMDESIVIR (CHARGED) 100 MG in IV NS 0.9% 100 ML IV SCH (17:20)
--- NOTE | 2020-05-28 18:32 | NUR ---
RN CLOSING NOTE PATIENT IS AWAKE IN BED AOX3. PATIENT IS ON HIGH FLOW 40L @ 80%. SUCTION EQUIPMENT IS AT THE BEDSIDE. PATIENT'S SKIN IS INTACT. PATIENT HAS AN RFA #20 THAT IS PATENT AND INTACT WITH NO SIGNS OF INFILTRATION. BED IS IN THE LOWEST POSITION, CALL ORTEGA WITHIN REACH, AND ALL HOSPITAL SAFETY PRECAUTIONS ARE BEING FOLLOWED. WILL ENDORSE TO THE FENDER FINISHER RN.
[2020-05-28 20:00] VITALS: BP 137/68
[2020-05-28] MEDS: CITALOPRAM HYDROBROMIDE 20 MG TABLET PO SCH (21:23)
[2020-05-28] MEDS: ATORVASTATIN 40 MG TABLET PO SCH (21:23)
--- NOTE | 2020-05-28 23:38 | NUR ---
RN OPENING NOTES RECEIVED PT IN BED A/O X 2-3, VERY TIRED, C/O NAUSEA. DAUGHTER AT BEDSIDE TRANSLATES, BETTER TO COMMUNICATE. HIGH FLOW 40L AAT 80%FIO2 SATURATION AT 93%. TOLERATING WELL. BREATHING EVEN AND UNLABORED. NO S/S OF RESP DISTRESS OR SOB NOTED ON TELE MONITORING NSR HR 60S PT DENIES PAIN, AFEBRILE. IV SITES FLUSHED ASEPTICALLY. SAFETY MEASURES IN PLACE. HOB ELEVATED. SIDE RAILS UP X2 BED LOCKED IN LOWEST POSITION. CALL LIGHT WITHIN REACH WILL CONT TO MONITOR.
[2020-05-29] VITALS: BP 137/75
[2020-05-29 04:00] VITALS: BP 142/68
[2020-05-29 07:22] LABS: EOSINOPHILS % (AUTO) 1.4 % (0.0-6.0); HEMATOCRIT 40 % (33-45); HEMOGLOBIN 13.9 g/dL (11.5-14.8); LYMPHOCYTES # (AUTO) 0.7 /CMM (0.8-4.8); LYMPHOCYTES % (AUTO) 8.9 % (20.0-44.0); MEAN CORPUSCULAR HGB CONC 34 g/dl (31.0-36.0); MEAN CORPUSCULAR VOLUME 88 fL (82-100); MONOCYTES # (AUTO) 0.3 /CMM (0.1-1.30); MONOCYTES % (AUTO) 3.3 % (2.0-12.0); NEUTROPHILS # (AUTO) 6.7 /CMM (1.8-8.9); NEUTROPHILS % (AUTO) 86.4 % (43.0-81.0); PLATELET COUNT (AUTO) 196 /CMM (150-450); RED BLOOD CELL COUNT(AUTO) 4.59 MIL/uL (4.0-5.2); WHITE BLOOD COUNT (AUTO) 7.7 K/uL (4.3-11.0)
--- NOTE | 2020-05-29 07:34 | NUR ---
RN CLOSING NOTE PATIENT IS ASLEEP IN BED AOX3. DAUGHTER AT BEDSIDE PATIENT IS ON HIGH FLOW 40L @ 80%. SUCTION EQUIPMENT IS AT THE BEDSIDE. PATIENT'S SKIN IS INTACT. PATIENT HAS AN RFA #20 THAT IS PATENT AND INTACT WITH NO SIGNS OF INFILTRATION. ALL NEEDS ATTENDED BED IS IN THE LOWEST POSITION, CALL ORTEGA WITHIN REACH, AND ALL HOSPITAL SAFETY PRECAUTIONS ARE BEING FOLLOWED. WILL ENDORSE TO THE AM SHIFT RN.
[2020-05-29 07:51] LABS: ALBUMIN 2.4 g/dL (3.4-5.0); BILIRUBIN,DIRECT 0.5 mg/dL (0.0-0.2); BILIRUBIN,TOTAL 1.1 mg/dL (0.2-1.0); CALCIUM, SERUM 8.5 mg/dL (8.5-10.1); CREATININE 0.7 mg/dL (0.6-1.3); MAGNESIUM 2.1 mg/dL (1.8-2.4); PHOSPHORUS 3.2 mg/dL (2.5-4.9); POTASSIUM 3.9 mmol/L (3.5-5.1); TOTAL PROTEIN, SERUM 6.7 g/dL (6.4-8.2)
[2020-05-29 08:00] VITALS: BP 143/73
[2020-05-29] MEDS: ENSURE ENLIVE 237 ML LIQUID (VANILLA) PO SCH ×6 (08:00→18:59)
--- NOTE | 2020-05-29 08:08 | NUR ---
RN OPENING NOTE RECEIVED PATIENT IN BED WITH HOB AT SEMI FOWLERS POSITION. PATIENT IS AOX3. SKIN IS INTACT. RFA #20 IS INTACT, PATENT, AND HAS NO SIGNS OF INFILTRATION. PATIENT IS ON HIGH FLOW 40L AT 80%. BED IS IN THE LOWEST POSITION, 3 SIDE RAILS RAISED, CALL ORTEGA WITHIN REACH, AND ALL HOSPITAL SAFETY PRECAUTIONS ARE BEING FOLLOWED. WILL CONTINUE TO MONITOR THROUGHOUT SHIFT.
[2020-05-29] MEDS: ASPIRIN 81 MG TAB.CHEW PO SCH (09:00)
[2020-05-29] MEDS: ASCORBIC ACID 500 MG TABLET PO SCH (09:00)
[2020-05-29] MEDS: ZINC SULFATE 220 MG CAPSULE PO SCH (09:01)
[2020-05-29] MEDS: DEXAMETHASONE SOD PHOSPHATE 10 MG/ML VIAL IV SCH (09:03)
[2020-05-29] MEDS: APIXABAN 5 MG TABLET PO SCH ×2 (09:03→17:17)
[2020-05-29] MEDS: ONDANSETRON HCL/PF 4 MG/2 ML VIAL IVP PRN ×2 (09:20→15:48)
[2020-05-29 12:00] VITALS: BP 152/89
[2020-05-29] MEDS: ENALAPRIL MALEATE (10 MG) 10 MG TABLET PO PRN (12:00)
[2020-05-29] MEDS: REMDESIVIR (CHARGED) 100 MG in IV NS 0.9% 100 ML IV SCH (15:35)
[2020-05-29 16:00] VITALS: BP 147/72
--- NOTE | 2020-05-29 19:01 | NUR ---
RN CLOSING NOTE PATIENT IN BED WITH HOB AT SEMI FOWLERS POSITION. PATIENT IS AOX3. SKIN IS INTACT. RFA #20 IS INTACT, PATENT, AND HAS NO SIGNS OF INFILTRATION. PATIENT IS ON HIGH FLOW 40L AT 80%. BED IS IN THE LOWEST POSITION, 3 SIDE RAILS RAISED, CALL ORTEGA WITHIN REACH, AND ALL HOSPITAL SAFETY PRECAUTIONS ARE BEING FOLLOWED. WILL CONTINUE TO MONITOR THROUGHOUT SHIFT. Addendum: 05/29/20 at 1906 by SCAR PAUL RN WILL ENDORSE TO MEDICAL AFFAIRS LEADER NURSE SHERI
--- NOTE | 2020-05-29 19:03 | NUR ---
WILL ENDORSE TO AIRCRAFT INSPECTION RECORD CLERK NURSE SHERI.
--- NOTE | 2020-05-29 19:10 | NUR ---
RECEIVED PT IN BED A/O X 2-3. DAUGHTER AT BEDSIDE TRANSLATES, BETTER TO COMMUNICATE. HIGH FLOW 40L AAT 60%FIO2 SATURATION AT 93%. TOLERATING WELL. BREATHING EVEN AND UNLABORED. NO S/S OF RESP DISTRESS OR SOB NOTED ON TELE MONITORING NSR HR 60S PT DENIES PAIN, AFEBRILE. IV SITES FLUSHED ASEPTICALLY. SAFETY MEASURES IN PLACE. HOB ELEVATED. SIDE RAILS UP X2 BED LOCKED IN LOWEST POSITION. CALL LIGHT WITHIN REACH WILL CONT TO MONITOR.
[2020-05-29 20:00] VITALS: BP 123/62
[2020-05-29] MEDS: CITALOPRAM HYDROBROMIDE 20 MG TABLET PO SCH (21:13)
[2020-05-29] MEDS: ATORVASTATIN 40 MG TABLET PO SCH (21:14)
[2020-05-30] VITALS: BP 128/84
[2020-05-30 04:00] VITALS: BP 118/61
--- NOTE | 2020-05-30 07:07 | NUR ---
RN CLOSING NOTE PATIENT IS ASLEEP IN BED AOX3. DAUGHTER AT BEDSIDE PATIENT IS ON HIGH FLOW 40L @ 70%. spo2 92%. PATIENT'S SKIN IS INTACT. PATIENT HAS AN RFA #20 THAT IS PATENT AND INTACT WITH NO SIGNS OF INFILTRATION. ALL NEEDS ATTENDED BED IS IN THE LOWEST POSITION, CALL light WITHIN REACH, AND ALL HOSPITAL SAFETY PRECAUTIONS ARE BEING FOLLOWED. WILL ENDORSE TO THE AM SHIFT RN.
--- NOTE | 2020-05-30 07:15 | NUR ---
RN OPENING NOTE RECEIVED PT IN BED. AWAKE, A/OX3-4. GEORGIAN SPEAKING. ON HIGH FLOW 40L AT 70%, SATURATING @95%. NO SOB OR ANY ACUTE DISTRESS AT THIS TIME. SKIN IS INTACT. R FA #20 INTACT, PATENT AND FLUSHED. SAFETY MEASURES IMPLEMENTED. CALL LIGHT WITHIN REACH. BED LOCKED AND IN LOWEST POSITION WITH SIDE RAILS UP X2. NO PAIN REPORTED AT THIS TIME. HOB ELEVATED. WILL CONTINUE TO MONITOR.
[2020-05-30 07:26] LABS: EOSINOPHILS % (AUTO) 3.1 % (0.0-6.0); HEMATOCRIT 42 % (33-45); HEMOGLOBIN 14.3 g/dL (11.5-14.8); LYMPHOCYTES # (AUTO) 0.6 /CMM (0.8-4.8); LYMPHOCYTES % (AUTO) 7.2 % (20.0-44.0); MEAN CORPUSCULAR HGB CONC 34 g/dl (31.0-36.0); MEAN CORPUSCULAR VOLUME 89 fL (82-100); MONOCYTES # (AUTO) 0.2 /CMM (0.1-1.30); MONOCYTES % (AUTO) 2.5 % (2.0-12.0); NEUTROPHILS # (AUTO) 6.9 /CMM (1.8-8.9); NEUTROPHILS % (AUTO) 87.2 % (43.0-81.0); PLATELET COUNT (AUTO) 211 /CMM (150-450)
[2020-05-30 07:47] LABS: CALCIUM, SERUM 8.5 mg/dL (8.5-10.1); CREATININE 0.7 mg/dL (0.6-1.3); POTASSIUM 4.1 mmol/L (3.5-5.1)
[2020-05-30 08:00] VITALS: BP 141/73
[2020-05-30] MEDS: ENSURE ENLIVE 237 ML LIQUID (VANILLA) PO SCH ×6 (08:45→17:42)
[2020-05-30] MEDS: ASCORBIC ACID 500 MG TABLET PO SCH (08:46)
[2020-05-30] MEDS: DEXAMETHASONE SOD PHOSPHATE 10 MG/ML VIAL IV SCH (08:46)
[2020-05-30] MEDS: ASPIRIN 81 MG TAB.CHEW PO SCH (08:46)
[2020-05-30] MEDS: ZINC SULFATE 220 MG CAPSULE PO SCH (08:46)
[2020-05-30] MEDS: APIXABAN 5 MG TABLET PO SCH ×2 (08:51→17:59)
[2020-05-30 12:00] VITALS: BP 143/75
[2020-05-30 16:00] VITALS: BP 141/84
--- NOTE | 2020-05-30 19:24 | NUR ---
RN CLOSING NOTE PT RESTING IN BED. A/OX3-4. CROATIAN SPEAKING. ON HIGH FLOW 40L AT 70%, SATURATING @95%. NO SOB OR ANY ACUTE DISTRESS AT THIS TIME. SKIN IS INTACT. R FA #20 INTACT, PATENT AND FLUSHED. SAFETY MEASURES IMPLEMENTED. CALL LIGHT WITHIN REACH. BED LOCKED AND IN LOWEST POSITION WITH SIDE RAILS UP X2. NO PAIN REPORTED AT THIS TIME. HOB ELEVATED. ALL MEDS GIVEN. ALL NEEDS ATTENDED. WILL ENDORSE TO NIGHT NURSE FOR KELLY.
--- NOTE | 2020-05-30 19:30 | NUR ---
RN OPENING NOTES RECIEVED PT IN BED, SLEEPING. EASILY AROUSABLE BY VERBAL STIMULI. PT DAUGHTER AT BEDSIDE. PT ON HIGH FLOW 40L 60 %. SATING AT 92 %. NO DISTRESS NOTED. TELE MONITOR SHOWS SR HR 78. WITH RAC G20 SL, PATENT AND INTACT. ALL SAFETY MEASURES IMPLEMENTED PER PROTOCOL. CALL LIGHT WITHIN REACH. BED LOCKED IN LOWEST POSITION. SIDE RAILS UP X 2.
[2020-05-30 20:00] VITALS: BP 119/60
[2020-05-30] MEDS: ATORVASTATIN 40 MG TABLET PO SCH (21:10)
[2020-05-30] MEDS: CITALOPRAM HYDROBROMIDE 20 MG TABLET PO SCH (21:10)
[2020-05-31] VITALS (7 sets, daily range): BP systolic 112–132; BP diastolic 55–79
[2020-05-31 06:25] LABS: BASOPHILS % (AUTO) 0.1 % (0.0-2.0); EOSINOPHILS % (AUTO) 3.7 % (0.0-6.0); HEMATOCRIT 42 % (33-45); HEMOGLOBIN 14.6 g/dL (11.5-14.8); LYMPHOCYTES # (AUTO) 0.6 /CMM (0.8-4.8); LYMPHOCYTES % (AUTO) 6.6 % (20.0-44.0); MEAN CORPUSCULAR HGB CONC 35 g/dl (31.0-36.0); MEAN CORPUSCULAR VOLUME 89 fL (82-100); MONOCYTES # (AUTO) 0.3 /CMM (0.1-1.30); NEUTROPHILS # (AUTO) 7.6 /CMM (1.8-8.9); NEUTROPHILS % (AUTO) 86.6 % (43.0-81.0); PLATELET COUNT (AUTO) 222 /CMM (150-450); RED BLOOD CELL COUNT(AUTO) 4.78 MIL/uL (4.0-5.2); WHITE BLOOD COUNT (AUTO) 8.8 K/uL (4.3-11.0)
[2020-05-31 06:43] LABS: CALCIUM, SERUM 8.6 mg/dL (8.5-10.1); CREATININE 0.6 mg/dL (0.6-1.3); MAGNESIUM 2.1 mg/dL (1.8-2.4); PHOSPHORUS 3.3 mg/dL (2.5-4.9); POTASSIUM 4.1 mmol/L (3.5-5.1)
--- NOTE | 2020-05-31 07:00 | NUR ---
RN CLOSING NOTES PT REMAINS IN BED, WITH DAUGHTER AT BEDSIDE. NO RESPIRATORY DISTRESS NOTED. CONTINUE ON HIGH FLOW 40L 60%, TOLERATING WELL. ON TELE MONITORING, SR HR 79. NO SIGNS OF PAIN OR DISCOMFORT. PT SLEEPING COMFORTABLY. STRICT ISOLATION PRECAUTION MAINTAINED. ALL SAFETY MEASURES IMPLEMENTED PER PROTOCOL. SIDE RAILS UP X 2. CALL LIGHT WITHIN REACH. BED LOCKED IN LOWEST POSITION. WILL ENDORSE TO NEXT SHIFT NURSE FOR KELLY.
--- NOTE | 2020-05-31 07:44 | NUR ---
TELE/RN OPENING RECEIVED PATIENT ON BED. AWAKE ALERT AND ORIENTED X 3-4. PATIENT IS ON HIGH FLOW 40L 60% OXYGEN. PATIENT IN NO APPARENT RESPIRATORY DISTRESS NOTED. NO COMPLAINED OF PAIN NOTED AT TIS TIME. TELE MONITOR READING SINUS KATJA/SINUS RHYTHM WITH PVC 50. WILL CONTINUE TO MONITOR.
[2020-05-31] MEDS: DEXAMETHASONE SOD PHOSPHATE 10 MG/ML VIAL IV SCH (08:21)
[2020-05-31] MEDS: ASCORBIC ACID 500 MG TABLET PO SCH (08:24)
[2020-05-31] MEDS: ASPIRIN 81 MG TAB.CHEW PO SCH (08:24)
[2020-05-31] MEDS: ZINC SULFATE 220 MG CAPSULE PO SCH (08:25)
[2020-05-31] MEDS: ENSURE ENLIVE 237 ML LIQUID (VANILLA) PO SCH ×6 (08:33→16:45)
[2020-05-31] MEDS: APIXABAN 5 MG TABLET PO SCH ×2 (08:34→16:43)
--- NOTE | 2020-05-31 19:05 | NUR ---
RECEIVED PT IN BED,AWAKE,A/O X3, WITH DAUGHTER AT THE BEDSIDE. ON HIGH FLOW O2 AT 40L/MIN, SATING 92%. NO S/S OF DISTRESS NOTED. BED IN LOWEST AND LOCKED POSITION. WHEN PT ASKED IF SHE FEELS BETTER TODAY, SHE REPLIED YES.
--- NOTE | 2020-05-31 19:30 | NUR ---
TELE/RN CLOSING NOTES PATIENT ON BED.ALERT AND ORIENTED X 3-4. PATIENT IS ON HIGH FLOW 40L 60% OXYGEN. PATIENT IN NO APPARENT RESPIRATORY DISTRESS NOTED. NO COMPLAINED OF PAIN NOTED AT THIS TIME. TELE MONITOR READING SINUS RHYTHM/ SINUS TACHY 103BPM SATURATION 95%. IV ACCESS AT RIGHT AC # 20G PATENT AND INTACT. SEEN AND EXAMINED BY MD WITH ORDERS MADE AND CARRIED OUT. ALL DUE MEDICATION WAS GIVEN. SAFETY PRECAUTIONS WAS IN PLACED. BED IN LOWEST POSITION AND LOCKED. SIDE RAILS UP X2. CALL LIGHT WITHIN REACH. WILL ENDORSED TO TRANSITION NURSE FOR KELLY.
[2020-05-31] MEDS: ATORVASTATIN 40 MG TABLET PO SCH (20:59)
[2020-05-31] MEDS: CITALOPRAM HYDROBROMIDE 20 MG TABLET PO SCH (20:59)
[2020-06-01] VITALS (7 sets, daily range): BP systolic 122–130; BP diastolic 64–80
--- NOTE | 2020-06-01 07:30 | NUR ---
TARGET DEVELOPER OPENING NOTES RECEIVED PATIENT ON BED. AWAKE ALERT AND ORIENTED X 3-4. PATIENT IS ON HIGH FLOW 40L 60% OXYGEN. NOT IN ANY ACUTE DISTRESS. NO COMPLAIN OF PAIN OR DISCOMFORT NOTED AT TIS TIME. TELE MONITOR READING SINUS KATJA/SINUS RHYTHM WITH PVCs 50. WILL CONTINUE TO MONITOR.
[2020-06-01] MEDS: DEXAMETHASONE SOD PHOSPHATE 10 MG/ML VIAL IV SCH (08:06)
[2020-06-01] MEDS: ZINC SULFATE 220 MG CAPSULE PO SCH (08:07)
[2020-06-01] MEDS: ASPIRIN 81 MG TAB.CHEW PO SCH (08:07)
[2020-06-01] MEDS: ASCORBIC ACID 500 MG TABLET PO SCH (08:07)
[2020-06-01] MEDS: APIXABAN 5 MG TABLET PO SCH ×2 (08:09→17:01)
[2020-06-01] MEDS: ENSURE ENLIVE 237 ML LIQUID (VANILLA) PO SCH ×6 (08:12→16:39)
[2020-06-01 14:58] LABS: BASOPHILS % (AUTO) 0.4 % (0.0-2.0); EOSINOPHILS % (AUTO) 3.4 % (0.0-6.0); HEMATOCRIT 46 % (33-45); HEMOGLOBIN 15.3 g/dL (11.5-14.8); LYMPHOCYTES # (AUTO) 0.7 /CMM (0.8-4.8); LYMPHOCYTES % (AUTO) 7.8 % (20.0-44.0); MEAN CORPUSCULAR HGB CONC 33 g/dl (31.0-36.0); MEAN CORPUSCULAR VOLUME 89 fL (82-100); MONOCYTES # (AUTO) 0.3 /CMM (0.1-1.30); MONOCYTES % (AUTO) 3.6 % (2.0-12.0); NEUTROPHILS # (AUTO) 7.2 /CMM (1.8-8.9); NEUTROPHILS % (AUTO) 84.8 % (43.0-81.0); PLATELET COUNT (AUTO) 243 /CMM (150-450); RED BLOOD CELL COUNT(AUTO) 5.16 MIL/uL (4.0-5.2); WHITE BLOOD COUNT (AUTO) 8.6 K/uL (4.3-11.0)
[2020-06-01 15:11] LABS: CALCIUM, SERUM 8.3 mg/dL (8.5-10.1); CREATININE 0.7 mg/dL (0.6-1.3); MAGNESIUM 2.1 mg/dL (1.8-2.4); PHOSPHORUS 3.7 mg/dL (2.5-4.9)
--- NOTE | 2020-06-01 18:52 | NUR ---
LOSS PREVENTION COORDINATOR CLOSING NOTES PATIENT REMAINS ALERT AND ORIENTED X 3-4. PATIENT IS ON HIGH FLOW 40L 60% OXYGEN. PATIENT IN NO APPARENT RESPIRATORY DISTRESS NOTED. TELE MONITOR READING SINUS RHYTHM/ SINUS TACHY IN 100S. SATURATION 96%. IV ACCESS AT RIGHT AC # 20G PATENT AND INTACT. ALL DUE MEDICATION WAS GIVEN. SAFETY PRECAUTIONS WAS IN PLACED. BED KEPT IN LOWEST POSITION AND LOCKED. SIDE RAILS UP X2. CALL LIGHT WITHIN REACH. WILL ENDORSED TO NEXT SHIFT FOR KELLY.
--- NOTE | 2020-06-01 20:10 | NUR ---
SPORTS MEDIA OPENING NOTES: PT IN BED, AWAKE, A/O X3-4. NO S/S OF DISTRESS NOTED. PT IS COMFORTABLE. HOB ELEVATED AT ALL TIMES. WITH DAUGHTER AT THE BEDSIDE. ON HIGH FLOW O2 AT 35 ML/HOUR 50% FIO2 SATING 95%.CALL LIGHT WITHIN REACH. BED IN LOWEST AND LOCKED POSITION.
[2020-06-01] MEDS: ATORVASTATIN 40 MG TABLET PO SCH (21:00)
[2020-06-01] MEDS: CITALOPRAM HYDROBROMIDE 20 MG TABLET PO SCH (21:00)
[2020-06-02] VITALS (7 sets, daily range): BP systolic 118–146; BP diastolic 65–82
[2020-06-02 05:50] LABS: BASOPHILS % (AUTO) 0.6 % (0.0-2.0); EOSINOPHILS % (AUTO) 2.7 % (0.0-6.0); HEMATOCRIT 42 % (33-45); LYMPHOCYTES # (AUTO) 0.8 /CMM (0.8-4.8); LYMPHOCYTES % (AUTO) 9.6 % (20.0-44.0); MEAN CORPUSCULAR HGB CONC 34 g/dl (31.0-36.0); MEAN CORPUSCULAR VOLUME 89 fL (82-100); MONOCYTES # (AUTO) 0.4 /CMM (0.1-1.30); NEUTROPHILS # (AUTO) 6.7 /CMM (1.8-8.9); NEUTROPHILS % (AUTO) 82.1 % (43.0-81.0); PLATELET COUNT (AUTO) 203 /CMM (150-450); RED BLOOD CELL COUNT(AUTO) 4.65 MIL/uL (4.0-5.2); WHITE BLOOD COUNT (AUTO) 8.1 K/uL (4.3-11.0)
[2020-06-02 06:05] LABS: CALCIUM, SERUM 8.4 mg/dL (8.5-10.1); CREATININE 0.8 mg/dL (0.6-1.3); MAGNESIUM 2.1 mg/dL (1.8-2.4); PHOSPHORUS 3.8 mg/dL (2.5-4.9); POTASSIUM 4.2 mmol/L (3.5-5.1)
--- NOTE | 2020-06-02 07:00 | NUR ---
RN OPENING NOTE RECEIVED PT IN BED. AWAKE, A/O X3-4. KYRGYZ SPEAKING. ON HIGH FLOW 35L AT 50%, SATURATING @97%. NO SOB OR ANY ACUTE DISTRESS AT THIS TIME. SKIN IS INTACT. R AC #20 INTACT, PATENT AND FLUSHED. SAFETY MEASURES IMPLEMENTED. CALL LIGHT WITHIN REACH. BED LOCKED AND IN LOWEST POSITION WITH SIDE RAILS UP X2. NO PAIN REPORTED AT THIS TIME. HOB ELEVATED. WILL CONTINUE TO MONITOR.
[2020-06-02] MEDS: ENSURE ENLIVE 237 ML LIQUID (VANILLA) PO SCH ×6 (08:28→17:02)
[2020-06-02] MEDS: ASPIRIN 81 MG TAB.CHEW PO SCH (08:29)
[2020-06-02] MEDS: ZINC SULFATE 220 MG CAPSULE PO SCH (08:29)
[2020-06-02] MEDS: DEXAMETHASONE SOD PHOSPHATE 10 MG/ML VIAL IV SCH (08:29)
[2020-06-02] MEDS: ASCORBIC ACID 500 MG TABLET PO SCH (08:29)
[2020-06-02] MEDS: APIXABAN 5 MG TABLET PO SCH ×2 (08:32→17:02)
[2020-06-02] MEDS: ERGOCALCIFEROL (VITAMIN D 2) 50,000 UNIT CAPSULE PO SCH (08:39)
[2020-06-02] MEDS: ONDANSETRON HCL/PF 4 MG/2 ML VIAL IVP PRN (09:23)
--- NOTE | 2020-06-02 18:50 | NUR ---
RN CLOSING NOTE PT RESTING IN BED. AWAKE, A/O X3-4. KOREAN SPEAKING. ON HIGH FLOW 30L AT 30%, SATURATING @93%. NO SOB OR ANY ACUTE DISTRESS AT THIS TIME. SKIN IS INTACT. R AC #20 INTACT, PATENT AND FLUSHED. SAFETY MEASURES IMPLEMENTED. CALL LIGHT WITHIN REACH. BED LOCKED AND IN LOWEST POSITION WITH SIDE RAILS UP X2. NO PAIN REPORTED AT THIS TIME. HOB ELEVATED. WILL ENDORSE TO NIGHT NURSE FOR KELLY.
--- NOTE | 2020-06-02 19:30 | NUR ---
RN OPENING NOTES RECEIVED PT IN BED, AWAKE RESTING. A/O X 4 GERMAN SPEAKING, DAUGHTER TRANSLATING. PT IS CURRENTLY ON HIGH FLOW 30L AT 30% FIO2. TOLERATING WELL SATURATING IS 94% AT THIS TIME. NO SOB OR RESP DISTRESS NOTED AT THIS TIME. PT IS ON CARDIAC MONITORING NSR HEART RATE 89 AT THIS TIME. PT IS AMBULATORY WITH ASSIST. USES BEDSIDE COMMODE. IV SITE FLUSHED, SL. PT DENIES PAIN AT THIS TIME. SAFETY MEASURES IN PLACE. HOB ELEVATED TOLERATED. BED IS LOCKED IN LOWEST POSITION. SIDE RAILS UP X2. CALL LIGHT WITHIN REACH. WILL CONT TO MONITOR.
[2020-06-02] MEDS: CITALOPRAM HYDROBROMIDE 20 MG TABLET PO SCH (21:02)
[2020-06-02] MEDS: ATORVASTATIN 40 MG TABLET PO SCH (21:02)
--- NOTE | 2020-06-02 21:45 | NUR ---
HEART RATE NOTED TO BE 110-120 PT WAS MOVING FROM BED TO CHAIR AND BACK TO BED. PT DENIES ANY PAIN AT THIS TIME. PT WAITING FOR SCHEDULED MEDICATION CELEXA, AFTER ADMINISTRATION AND USE OF ENCOURAGEMENT OF RELAXATION VIA DAUGHTER, PT HEART RATE BACK TO BASELINE NSR 80S. WILL CONT TO MONITOR. Addendum: 06/02/20 at 2224 by ROBERTA YEBOAH RN PT RESTING WELL, HEART RATE AT THIS TIME IS 76
[2020-06-03] VITALS: BP 118/75
[2020-06-03 04:00] VITALS: BP 121/74
--- NOTE | 2020-06-03 06:55 | NUR ---
RN CLOSING NOTES NO SIGNIFICANT CHANGES, PT RESTED WELL THROUGHOUT THE NIGHT. PT INCREASING ACTIVITY AND TOLERATING WELL. STILL ON HIGH FLOW 30L AT 30% SATURATING WELL AT 94%. PT IS INCREASING PO INTAKE. STILL NSR AT THIS TIME. HEART RATE IN THE 70S. NEEDS ATTENDED. SAFETY MEASURES IN PLACE. HOB ELEVATED. SIDE RAILS UP X2. BED IS LOCKED IN LOWEST POSITION. CALL LIGHT WITHIN REACH. WILL ENDORSE TO AM NURSE FOR CONTINUATION OF CARE.
[2020-06-03 07:10] LABS: BASOPHILS % (AUTO) 0.5 % (0.0-2.0); EOSINOPHILS % (AUTO) 1.3 % (0.0-6.0); HEMATOCRIT 40 % (33-45); HEMOGLOBIN 13.8 g/dL (11.5-14.8); LYMPHOCYTES # (AUTO) 1.1 /CMM (0.8-4.8); LYMPHOCYTES % (AUTO) 12.8 % (20.0-44.0); MEAN CORPUSCULAR HGB CONC 34 g/dl (31.0-36.0); MEAN CORPUSCULAR VOLUME 89 fL (82-100); MONOCYTES # (AUTO) 0.4 /CMM (0.1-1.30); MONOCYTES % (AUTO) 4.5 % (2.0-12.0); NEUTROPHILS # (AUTO) 7.1 /CMM (1.8-8.9); NEUTROPHILS % (AUTO) 80.9 % (43.0-81.0); PLATELET COUNT (AUTO) 213 /CMM (150-450); RED BLOOD CELL COUNT(AUTO) 4.52 MIL/uL (4.0-5.2); WHITE BLOOD COUNT (AUTO) 8.8 K/uL (4.3-11.0)
[2020-06-03 08:00] VITALS: BP 121/75
--- NOTE | 2020-06-03 08:00 | NUR ---
RN OPENING NOTE. RECEIVED PATIENT IN BED WITH HOB AT SEMI REYNOSO'S POSITION. AOX4. SKIN IS INTACT WITH PILLOWS AT PRESSURE POINTS. HIGH FLOW ON AT 30L AT 30% FIO2. COMMODE AT BEDSIDE. RFA #20 IS INTACT, PATENT, AND HAS NO SIGNS OF INFILTRATION. BED IS LOCKED IN LOWEST POSITION, 3 SIDE RAILS RAISED, CALL ORTEGA WITHIN REACH. WILL CONTINUE TO MONITOR THROUGHOUT SHIFT.
[2020-06-03 08:09] LABS: CALCIUM, SERUM 8.7 mg/dL (8.5-10.1); CREATININE 0.7 mg/dL (0.6-1.3); MAGNESIUM 2.3 mg/dL (1.8-2.4); PHOSPHORUS 3.4 mg/dL (2.5-4.9); POTASSIUM 4.2 mmol/L (3.5-5.1)
[2020-06-03] MEDS: ASPIRIN 81 MG TAB.CHEW PO SCH (08:45)
[2020-06-03] MEDS: ASCORBIC ACID 500 MG TABLET PO SCH (08:46)
[2020-06-03] MEDS: APIXABAN 5 MG TABLET PO SCH ×2 (08:46→16:21)
[2020-06-03] MEDS: DEXAMETHASONE SOD PHOSPHATE 10 MG/ML VIAL IV SCH (08:46)
[2020-06-03] MEDS: ZINC SULFATE 220 MG CAPSULE PO SCH (08:46)
[2020-06-03 12:00] VITALS: BP 158/81
[2020-06-03] MEDS: ENSURE ENLIVE 237 ML LIQUID (VANILLA) PO SCH ×3 (12:07→16:25)
[2020-06-03 16:00] VITALS: BP 136/71
--- NOTE | 2020-06-03 18:58 | NUR ---
RN CLOSING NOTE PATIENT IS IN BED WITH HOB AT SEMI FOWLERS POSITION. PATIENT IS AOX4. SKIN IS INTACT. COMMODE AT BEDSIDE. RECEIVING 6L NC. RFA#20 IS PATENT, INTACT, AND HAS NO SIGNS OF INFILTRATION. BED IS LOCKED IN THE LOWEST POSITION, CALL ORTEGA WITHIN REACH, THREE GUARD RAILS RAISED, AND ALL HOSPITAL SAFETY PRECAUTIONS ARE BEING FOLLOWED. WILL ENDORSE TO QUALITY PROJECT MANAGER NURSE.
--- NOTE | 2020-06-03 19:30 | NUR ---
RN OPENING NOTES RECEIVED PT IN BED, AWAKE RESTING. A/O X 4 INDONESIAN SPEAKING, DAUGHTER TRANSLATING. PT IS CURRENTLY ON 6L OF O2 VIA NASAL CANNULA, TOLERATING WELL SATURATING IS 95% AT THIS TIME. NO SOB OR RESP DISTRESS NOTED AT THIS TIME. PT IS ON CARDIAC MONITORING NSR HEART RATE 71 AT THIS TIME. PT IS AMBULATORY WITH ASSIST. USES BEDSIDE COMMODE. IV SITE FLUSHED, SL. PT DENIES PAIN AT THIS TIME. SAFETY MEASURES IN PLACE. HOB ELEVATED TOLERATED. BED IS LOCKED IN LOWEST POSITION. SIDE RAILS UP X2. CALL LIGHT WITHIN REACH. WILL CONTINUE TO MONITOR.
[2020-06-03 20:00] VITALS: BP 120/68
[2020-06-03] MEDS: CITALOPRAM HYDROBROMIDE 20 MG TABLET PO SCH (21:00)
[2020-06-03] MEDS: ATORVASTATIN 40 MG TABLET PO SCH (21:00)
[2020-06-04] VITALS: BP 127/71
[2020-06-04 04:00] VITALS: BP 126/68
--- NOTE | 2020-06-04 06:14 | NUR ---
RN CLOSING NOTES NO SIGNIFICANT CHANGES, PT RESTED WELL THROUGHOUT THE NIGHT. STILL ON 6L NASAL CANNULA. TOLERATING WELL SATURATING IS 96% AT THIS TIME. NO SOB OR RESP DISTRESS NOTED AT THIS TIME. PT IS STILL NSR ON CARDIAC MONITORING. SAFETY MEASURES IN PLACE. HOB ELEVATED TOLERATED. BED IS LOCKED IN LOWEST POSITION. SIDE RAILS UP X2. CALL LIGHT WITHIN REACH. WILL ENDORSE TO AM NURSE FOR CONTINUATION OF CARE.
[2020-06-04 06:40] LABS: BASOPHILS # (AUTO) 0.1 /CMM (0.0-0.2); BASOPHILS % (AUTO) 0.6 % (0.0-2.0); EOSINOPHILS % (AUTO) 1.3 % (0.0-6.0); HEMATOCRIT 42 % (33-45); HEMOGLOBIN 14.4 g/dL (11.5-14.8); LYMPHOCYTES # (AUTO) 1.3 /CMM (0.8-4.8); MEAN CORPUSCULAR HGB CONC 34 g/dl (31.0-36.0); MEAN CORPUSCULAR VOLUME 90 fL (82-100); MONOCYTES # (AUTO) 0.5 /CMM (0.1-1.30); MONOCYTES % (AUTO) 5.7 % (2.0-12.0); NEUTROPHILS # (AUTO) 6.7 /CMM (1.8-8.9); NEUTROPHILS % (AUTO) 77.4 % (43.0-81.0); PLATELET COUNT (AUTO) 206 /CMM (150-450); RED BLOOD CELL COUNT(AUTO) 4.71 MIL/uL (4.0-5.2); WHITE BLOOD COUNT (AUTO) 8.7 K/uL (4.3-11.0)
--- NOTE | 2020-06-04 07:30 | NUR ---
TELE1 PT IN BED, NO S/S OF DISTRESS, ON 2.5L NASAL CANULA, O2 SAT 100%, A/OX4, AMBULATE WITH ASSIST, SKIN INTACT, REGULAR DIET, R FA 20G, BED IN LOWEST LOCKED POSITION, CALL LIGHT WITHIN REACH, BED ALARM ON, SAFETY MEASURES IN PLACE, WILL CONTINUE TO MONITOR.
--- NOTE | 2020-06-04 07:58 | NUR ---
TELE1 PT IN BED, NO S/S OF DISTRESS, ON 6L NASAL CANULA, O2 SAT 100%, A/OX4, AMBULATE WITH ASSIST, SKIN INTACT, REGULAR DIET, R FA 20G, BED IN LOWEST LOCKED POSITION, CALL LIGHT WITHIN REACH, BED ALARM ON, SAFETY MEASURES IN PLACE, WILL CONTINUE TO MONITOR.
[2020-06-04 08:00] VITALS: BP 115/60
[2020-06-04 09:00] LABS: CALCIUM, SERUM 8.9 mg/dL (8.5-10.1); CREATININE 0.8 mg/dL (0.6-1.3); MAGNESIUM 2.4 mg/dL (1.8-2.4); PHOSPHORUS 4.3 mg/dL (2.5-4.9); POTASSIUM 4.8 mmol/L (3.5-5.1)
[2020-06-04] MEDS: DEXAMETHASONE SOD PHOSPHATE 10 MG/ML VIAL IV SCH ×3 (09:00→09:18)
[2020-06-04] MEDS: ZINC SULFATE 220 MG CAPSULE PO SCH (09:06)
[2020-06-04] MEDS: ASPIRIN 81 MG TAB.CHEW PO SCH (09:06)
[2020-06-04] MEDS: ASCORBIC ACID 500 MG TABLET PO SCH (09:06)
[2020-06-04] MEDS: APIXABAN 5 MG TABLET PO SCH ×2 (09:07→16:50)
[2020-06-04] MEDS: ENSURE ENLIVE 237 ML LIQUID (VANILLA) PO SCH ×3 (09:09→16:52)
--- NOTE | 2020-06-04 09:19 | NUR ---
tele1 PATIENT REFUSED DECADRON WITH DAUGHTER SEBASTIAN AT BEDSIDE, WILL FOLLOW UP WITH MD.
[2020-06-04 12:00] VITALS: BP 121/75
--- NOTE | 2020-06-04 12:30 | NUR ---
RN TELE1 DAUGHTER IN ROOM, ASSISTING WITH FEEDING AND EDUCATING ON NEED TO EAT.
[2020-06-04 16:00] VITALS: BP 110/60
--- NOTE | 2020-06-04 17:00 | NUR ---
RN TELE1 TOLERATING CARE, NO NEW CHANGES, O2 NASAL CANULA DECREASED TO 2.5 L, O2 SAT >95%.
--- NOTE | 2020-06-04 19:00 | NUR ---
TELE/RN OPENING NOTES: RECEIVED PT. IN BED, RESTING IN BED. A/OX4, FRENCH SPEAKING, DAUGHTER AT BEDSIDE. PT IS CURRENTLY ON 2L OF O2 VIA NASAL CANNULA, TOLERATING WELL SATURATING IS 95% AT THIS TIME. NO SOB OR RESP DISTRESS NOTED AT THIS TIME. PT IS ON CARDIAC MONITORING NSR HEART RATE 71 AT THIS TIME. PT IS AMBULATORY WITH ASSIST AND USES THE BEDSIDE COMMODE. IV SITE RFA #20G. PT DENIES PAIN AT THIS TIME. SAFETY MEASURES IN PLACE. BED IS LOCKED IN LOWEST POSITION. HOB ELEVATED TOLERATED. SIDE RAILS UP X2. CALL LIGHT WITHIN REACH. WILL CONTINUE TO MONITOR ACCORDINGLY.
[2020-06-04] MEDS: CITALOPRAM HYDROBROMIDE 20 MG TABLET PO SCH (21:17)
[2020-06-04] MEDS: ATORVASTATIN 40 MG TABLET PO SCH (21:17)
[2020-06-04 22:00] VITALS: BP 129/88
--- NOTE | 2020-06-05 | NUR ---
TELE/RN NOTES: PER PATIENT'S DAUGHTER "IT OKAY, NO NEED TO TAKE 12 O'CLOCK VITAL SIGNS, SHE'S SLEEPING." PT STABLE AT THIS TIME. NO S/S OF DISTRESS. TELE READING SR. NO C/O PAIN AT THIS TIME/ DAUGHTER AT BEDSIDE WATCHING OVER THE PATIENT. WILL CONTINUE TO MONITOR.
[2020-06-05 01:05] VITALS: BP 0/0
[2020-06-05 04:00] VITALS: BP 124/76
--- NOTE | 2020-06-05 05:14 | NUR ---
TELE/RN OPENING NOTES: RECEIVED PT. IN BED, RESTING IN BED. A/OX4, FAROESE SPEAKING, DAUGHTER AT BEDSIDE. PT IS CURRENTLY ON 2L OF O2 VIA NASAL CANNULA, TOLERATING WELL SATURATING IS 95% AT THIS TIME. NO SOB OR RESP DISTRESS NOTED AT THIS TIME. PT IS ON CARDIAC MONITORING NSR HEART RATE 71 AT THIS TIME. PT IS AMBULATORY WITH ASSIST AND USES THE BEDSIDE COMMODE. IV SITE RFA #20G. PT DENIES PAIN AT THIS TIME. SAFETY MEASURES IN PLACE. BED IS LOCKED IN LOWEST POSITION. HOB ELEVATED TOLERATED. SIDE RAILS UP X2. CALL LIGHT WITHIN REACH. WILL CONTINUE TO MONITOR ACCORDINGLY. Addendum: 06/05/20 at 0529 by VARUN LITTLE RN INCORRECT TIME DOCUMENTATION. PLS DISREGARD.
--- NOTE | 2020-06-05 06:29 | NUR ---
TELE/RN CLOSING NOTES: PT. REMAINS RESTING IN BED. A/OX4, DAUGHTER AT BEDSIDE. CURRENTLY ON 2L OF O2 VIA NASAL CANNULA, TOLERATING WELL SATURATING IS 94% AT THIS TIME. NO SOB OR RESP DISTRESS NOTED AT THIS TIME. PT IS ON CARDIAC MONITORING NSR HEART RATE 75 AT THIS TIME. AMBULATORY WITH ASSIST AND USES THE BEDSIDE COMMODE. IV SITE RFA #20G. NO COMPLAINS OF PAIN AT THIS TIME. SAFETY MEASURES IN PLACE. BED IS LOCKED IN LOWEST POSITION. HOB ELEVATED TOLERATED. SIDE RAILS UP X2. CALL LIGHT WITHIN REACH. ALL DUE MEDS GIVEN ORDERED. ALL NURSING NEEDS MET AND RENDERED. KEPT CLEAN AND DRY AT ALL TIMES. WILL CONTINUE PLAN OF CARE AND ENDORSE TO DAY SHIFT FOR KELLY.
--- NOTE | 2020-06-05 07:43 | NUR ---
RN OPENING NOTE RECEIVED PATIENT IN BED AOX4. PATIENT IS ON 2L NC. SKIN IS INTACT. RFA #20 IS PATENT, INTACT, AND HAS NO SIGNS OF INFILTRATION. MONITOR READS A NORMAL SINUS RHYTHM. BED IS LOCKED IN THE LOWEST POSITION, 3 SIDE RAILS RAISED, AND CALL [place]TE[place] IS WITHIN REACH. WILL CONTINUE TO MONITOR THROUGHOUT SHIFT.
[2020-06-05 08:00] VITALS: BP 128/73
[2020-06-05] MEDS: APIXABAN 5 MG TABLET PO SCH ×2 (09:16→18:10)
[2020-06-05] MEDS: ASCORBIC ACID 500 MG TABLET PO SCH (09:16)
[2020-06-05] MEDS: ASPIRIN 81 MG TAB.CHEW PO SCH (09:16)
[2020-06-05] MEDS: ZINC SULFATE 220 MG CAPSULE PO SCH (09:16)
[2020-06-05] MEDS: ENSURE ENLIVE 237 ML LIQUID (VANILLA) PO SCH (09:17)
[2020-06-05 12:00] VITALS: BP 126/67
[2020-06-05 16:00] VITALS: BP 107/62
--- NOTE | 2020-06-05 18:52 | NUR ---
RN CLOSING NOTE PATIENT IS IN BED WITH HOB AT [facility]. PATIENT IS AOX4. CURRENTLY ON 2L NC. RFA IS PATENT, INTACT, AND HAS NO SIGNS OF INFILTRATION. MONITOR NOTES SR AND A SATURATION OF 96%. SKIN IS INTACT. COMMODE AT BEDSIDE. BED IS LOCKED IN THE LOWEST POSITION, 3 SIDE RAILS RAISED, CALL ORTEGA WITHIN REACH, AND ALL HOSPITAL SAFETY PRECAUTIONS ARE BEING FOLLOWED. WILL ENDORSE TO AVIATION NEUROPSYCHOLOGIST NURSE.
--- NOTE | 2020-06-05 19:30 | NUR ---
FUEL ASSEMBLER OPENING NOTE RECEIVED PATIENT IN BED. A/OX 4, ENGLISH SPEAKING ABLE TO MAKE BASIC NEEDS KNOWN. ON OXYGEN 2L/MIN VIA NASAL CANNULA. RESPIRATIONS ARE EVEN AND UNLABORED. NO S/S SOB NOTED. NO S/S PAIN NOTED. EXTERNAL TELE MONITOR READS SINUS RHYTHM / SINUS TACH HR 93. IN NO APPARENT DISTRESS. IV ACCESS IN RFA#20 PATENT AND SALINE LOCKED. BED I SLOW AND LOCKED, HOB ELEVATED IN SEMI FOWLERS, SIDE RAILS UP X3. CALL LIGHT WITHIN REACH. WILL CONTINUE TO MONITOR THROUGHOUT SHIFT.
[2020-06-05 20:00] VITALS: BP 121/79
[2020-06-05] MEDS: CITALOPRAM HYDROBROMIDE 20 MG TABLET PO SCH (21:04)
[2020-06-05] MEDS: ATORVASTATIN 40 MG TABLET PO SCH (21:05)
[2020-06-06] VITALS: BP 121/70
[2020-06-06 04:00] VITALS: BP 128/69
--- NOTE | 2020-06-06 06:29 | NUR ---
FOOD BROKER CLOSING NOTE PATIENT RESTING IN BED. A/OX . REMAINS ON OXYGEN 2L/MIN VIA NASAL CANNULA. NO RESP DISTRESS. NO PAIN NOTED. TELE MONITOR READS SINUS RHYTHM. NO DISTRESS. IV ACCESS MAINTAINED IN RFA#20. BED REMAINS LOW AND LOCKED, HOB ELEVATED IN SEMI FOWLERS, SIDE RAILS UP X3. CALL LIGHT WITHIN REACH. WILL ENDORSE TO NEXT SHIFT.
[2020-06-06 08:00] VITALS: BP 131/66
[2020-06-06] MEDS: ZINC SULFATE 220 MG CAPSULE PO SCH (08:14)
[2020-06-06] MEDS: ASPIRIN 81 MG TAB.CHEW PO SCH (08:14)
[2020-06-06] MEDS: ASCORBIC ACID 500 MG TABLET PO SCH (08:15)
[2020-06-06] MEDS: APIXABAN 5 MG TABLET PO SCH ×2 (08:17→16:27)
[2020-06-06 13:27] LABS: BASOPHILS # (AUTO) 0.1 /CMM (0.0-0.2); BASOPHILS % (AUTO) 0.8 % (0.0-2.0); HEMATOCRIT 43 % (33-45); HEMOGLOBIN 14.5 g/dL (11.5-14.8); LYMPHOCYTES # (AUTO) 1.4 /CMM (0.8-4.8); LYMPHOCYTES % (AUTO) 18.9 % (20.0-44.0); MEAN CORPUSCULAR HGB CONC 34 g/dl (31.0-36.0); MEAN CORPUSCULAR VOLUME 90 fL (82-100); MONOCYTES # (AUTO) 0.5 /CMM (0.1-1.30); MONOCYTES % (AUTO) 5.9 % (2.0-12.0); NEUTROPHILS # (AUTO) 5.6 /CMM (1.8-8.9); NEUTROPHILS % (AUTO) 72.4 % (43.0-81.0); PLATELET COUNT (AUTO) 176 /CMM (150-450); RED BLOOD CELL COUNT(AUTO) 4.81 MIL/uL (4.0-5.2); WHITE BLOOD COUNT (AUTO) 7.7 K/uL (4.3-11.0)
[2020-06-06 14:07] LABS: CALCIUM, SERUM 8.6 mg/dL (8.5-10.1); CREATININE 0.8 mg/dL (0.6-1.3); MAGNESIUM 2.2 mg/dL (1.8-2.4); PHOSPHORUS 3.6 mg/dL (2.5-4.9); POTASSIUM 4.2 mmol/L (3.5-5.1)
[2020-06-06 16:00] VITALS: BP 106/19
--- NOTE | 2020-06-06 18:26 | NUR ---
CONTACT CENTER ANALYST NOTES PATIENT IN BED RESTING NO SOB OR ACUTE DISTRESS NOTED. ALL DUE MEDICATIONS ADMINISTERED. ALL NEEDS MET. PATIENT HAD EPISODES OF TACHYCARDIA RANGING FROM 105-130 BPM. SANDEEP ONEIL NP AWARE, PATIENT WILL BE SEEN BY INDUSTRIAL SERVICER. SAFETY MEASURES IN PLACE.
--- NOTE | 2020-06-06 19:43 | NUR ---
SENIOR COUNSEL COMMERCIAL NOTES PATIENT IN BED, AWAKE, ALERT AND ORIENTED X 4. FAMILY AT BESIDE. BREATHING EVEN AND UNLABORED ON 2L NC. SHOWS NO SIGNS OF ACUTE RESPIRATORY DISTRESS. NO ACUTE PAIN. TELE MONITOR SR-ST. IV ON RFA 20G ITS CLEAN DRY AND INTACT. FLUSHING WELL. SHOWS NO SIGNS OF INFILTRATION, NO REDNESS. SAFETY PRECAUTIONS IN PLACE. BED IN LOWEST POSITION, LOCKED, AND CALL LIGHT KEPT WITHIN REACH. WILL CONTINUE TO MONITOR.
[2020-06-06 20:00] VITALS: BP 103/60
[2020-06-06] MEDS: ATORVASTATIN 40 MG TABLET PO SCH (20:58)
[2020-06-06] MEDS: CITALOPRAM HYDROBROMIDE 20 MG TABLET PO SCH (21:02)
[2020-06-07 00:13] VITALS: BP 115/69
[2020-06-07 04:00] VITALS: BP 126/71
--- NOTE | 2020-06-07 06:35 | NUR ---
KINESIOLOGY PROFESSOR NOTES PATIENT IN BED, ASLEEP, ALERT AND ORIENTED X 4. FAMILY AT BESIDE. BREATHING EVEN AND UNLABORED ON 2L NC. SHOWS NO SIGNS OF ACUTE RESPIRATORY DISTRESS. NO ACUTE PAIN. TELE MONITOR SR-ST. IV ON RFA 20G ITS CLEAN DRY AND INTACT. FLUSHING WELL. SHOWS NO SIGNS OF INFILTRATION, NO REDNESS. ALL DUE MEDICATIONS GIVEN. ALL NEEDS ATTENDED TO. SAFETY PRECAUTIONS IN PLACE. BED IN LOWEST POSITION, LOCKED, AND CALL LIGHT KEPT WITHIN REACH. WILL ENDORSE TO ONCOMING NURSE.
--- NOTE | 2020-06-07 07:30 | NUR ---
TELE/RN OPENING NOTE Patient resting in bed, A&O x 4. No complaints of pain/discomfort at this time. Breathing even and non-labored on 2L oxygen via NC. No respiratory distress noted. On tele monitor reading ST 130s. IV access noted on R FA #20g, patent and intact, and flushing well. Bed locked to its lowest position, side rails x 2 up, call light in hand. Daughter at bedside. Will continue with current medical management.
[2020-06-07 08:00] VITALS: BP 119/69
[2020-06-07] MEDS: ZINC SULFATE 220 MG CAPSULE PO SCH (08:28)
[2020-06-07] MEDS: ASPIRIN 81 MG TAB.CHEW PO SCH (08:28)
[2020-06-07] MEDS: APIXABAN 5 MG TABLET PO SCH (08:28)
[2020-06-07] MEDS: ASCORBIC ACID 500 MG TABLET PO SCH (08:28)
--- NOTE | 2020-06-07 10:00 | NUR ---
TELE/RN NOTE ENDORSED TO CHIVO GOODWIN FOR KELLY
[2020-06-07 10:28] VITALS: BP 119/69
[2020-06-07] MEDS ORDERED: APIX5TAB PO (11:30)
[2020-06-07 12:00] VITALS: BP 119/69
--- NOTE | 2020-06-07 15:01 | NUR ---
BOX SPRING UPHOLSTERER NOTES PT DISCHARGE HOME AT THIS TIME. PT MEDICALLY CLEAR FOR DISCHARGE. ALL NEEDS, CARE, MEDICATIONS AND TREATMENT ADMINISTERED ANTICIPATED PER ORDER. DISCHARGE INSTRUCTIONS PROVIDED, PT VERBALIZED UNDERSTANDING. PT DISCHARGED HOME WITH DME-OXYGEN, FWW AND BEDSIDE COMMODE FOR HOME USE. BELONGINGS ACCOUNTED FOR ,SIGNED AND GIVEN TO PT. IV ACCESS REMOVED, PRESSURE APPLIED, SECURE WITH GAUZE AND TAPE. NO S/O BLEEDING NOTED. ID BAND REMOVED. PT TRANSPORTED OUT OF UNIT IN STABLE CONDITION BY TWO AMBULANCE PERSONNELS. TRANSPORTED BY [facility]. MD SANDEEP AWARE.
== END 2020-06-07 14:57 | disposition home or self-care (01) | DRG 177 ==
LOC: ER 10:31 → TRANSITION 14:02 → TELE1 15:49
PROVIDERS: ADMIT Family Medicine; ATTEND Nurse Practitioner Acute Care
PROC: XW033E5 Introduction of Remdesivir Anti-infective into Peripheral Vein, Percutaneous Approach, New Technology Group 5 (ICD-10-PCS; principal; 2020-05-25)
PROC: XW13325 Transfusion of Convalescent Plasma (Nonautologous) into Peripheral Vein, Percutaneous Approach, New Technology Group 5 (ICD-10-PCS; 2020-05-26)
DX: U07.1 COVID-19 (principal); J96.01 Acute respiratory failure with hypoxia; J12.82 Pneumonia due to coronavirus disease 2019; N17.0 Acute kidney failure with tubular necrosis; D68.59 Other primary thrombophilia; J98.11 Atelectasis; E44.0 Moderate protein-calorie malnutrition; Z90.710 Acquired absence of both cervix and uterus; Z90.49 Acquired absence of other specified parts of digestive tract; Z79.82 Long term (current) use of aspirin; Z79.899 Other long term (current) drug therapy; F03.90 Unspecified dementia, unspecified severity, without behavioral disturbance, psychotic disturbance, mood disturbance, and anxiety; I10 Essential (primary) hypertension; R73.9 Hyperglycemia, unspecified; Z74.09 Other reduced mobility
CPT/HCPCS: 36415; 36600; 71045-TC; 80048-TC; 80053-TC; 80061-TC; 80076-TC; 82550-TC; 82728-TC; 82803-TC; 83605-TC; 83615-TC; 83735-TC; 83880; 84100-TC; 84484-TC; 85025-TC; 85378-TC; 85610-TC; 85730-TC; 86140-TC; 86850-TC; 87040-TC; 87081-TC; 93308-TC; 94760-TC; 94761-TC; 94762-TC; 94799-TC; 97110-TC; 97116-TC; 97530-TC; A4216; A4217; C9803; G0378; J1100; J2405; J7030; J7040; J7050; P9017-BL; Q9967; U0003